=== PATIENT | male | born 1985 | race Caucasian/White ===

== ENCOUNTER 2017-08-11 06:17 | Emergency (ER) | payer MEDICAID, OTHER, SELFPAY ==
[~2017-08-11] VITALS: Ht 188 cm; Wt 129.6 kg
[2017-08-11] MEDS ORDERED: NAPR-685 PO (06:39)
[2017-08-11] MEDS ORDERED: HYDROcodone/APAP 5/325 TABLET ONE (06:52)
[2017-08-11] MEDS ORDERED: KETOROLAC 30 MG/1 ML ONE (06:52)
[2017-08-11] MEDS ORDERED: DIAZEPAM 5 MG TABLET ONE (06:53)
[2017-08-11] MEDS ORDERED: DIAZEPAM 5 MG TABLET PO ONE (07:00)
[2017-08-11] MEDS ORDERED: KETOROLAC 30 MG/1 ML IM ONE (07:00)
[2017-08-11] MEDS ORDERED: HYDROcodone/APAP 5/325 TABLET PO ONE (07:00)
[2017-08-11 07:40] VITALS: BP 133/90
== END 2017-08-11 08:14 | disposition home or self-care (01) ==
LOC: ED 08:00
DX: S39.012A Strain of muscle, fascia and tendon of lower back, initial encounter (principal); M46.1 Sacroiliitis, not elsewhere classified; M51.26 Other intervertebral disc displacement, lumbar region; X58.XXXA Exposure to other specified factors, initial encounter; Y93.89 Activity, other specified; Y92.89 Other specified places as the place of occurrence of the external cause; Y99.8 Other external cause status
CPT/HCPCS: 96372; 99283; J1885